=== PATIENT | female | born 1975 | race Caucasian/White ===

== ENCOUNTER 2016-10-15 15:42 | Inpatient (IN) | payer MEDICAID ==
[~2016-10-15] VITALS: Ht 165.1 cm; Wt 62.5 kg
[~2016-10-15 15:42] MED LIST: CIPR500T4 PO; FAMO-18 PO; HYD25 PO; HYDR-3672 PO; HYDR-762 PO; IBUP800T25 PO; LISI20TA11 PO; MAG355OR15 PO; METF-480 PO; METH-70 PO; OMEP20CA16 PO; ONDA4TAB8 PO
[2016-10-15] MEDS ORDERED: SOD CHLORIDE 0.9% 1,000 ML IV STA (17:49)
[2016-10-15] MEDS ORDERED: HYDROCHLOROTHIAZIDE 50 MG TAB PO ONE (18:00)
[2016-10-15 18:18] LABS: ADD SCAN DIFF NO
--- NOTE | 2016-10-15 18:21 | RADRPT ---
PROCEDURE: XR Chest. CLINICAL INDICATION: Abdomen pain. TECHNIQUE: Single frontal view. COMPARISON: 07/09/2016. FINDINGS: The lungs are clear. The heart size is normal. There is no pleural effusion. There is no pneumothorax. IMPRESSION: 1. Normal chest radiograph. 2. No change from 07/09/2016. RPTAT: QQ .Juanpablo Joshi MD, MD Date Time Electronically viewed and signed by .Juanpablo Joshi MD, MD on 10/15/2016 18:21 .R/
[2016-10-15 18:22] LABS: BASOPHILS % 0.2 % (0.0-2.0); EOSINOPHILS # 0.1 10^3/ul (0.0-0.5); EOSINOPHILS % 0.5 % (0.0-7.0); HEMATOCRIT 39.8 % (37.0-47.0); HEMOGLOBIN 13.2 g/dl (12.0-16.0); LYMPHOCYTES % 10.2 % (15.0-51.0); MEAN CORPUSCULAR HEMOGLOBIN 29.3 pg (29.0-33.0); MEAN CORPUSCULAR HGB CONC 33.2 g/dl (32.0-37.0); MEAN CORPUSCULAR VOLUME 88.4 fl (82.0-101.0); MEAN PLATELET VOLUME 11.1 fl (7.4-10.4); MONOCYTE # 0.9 10^3/ul (0.3-0.9); MONOCYTES % 8.4 % (0.0-11.0); NEUTROPHILS % 79.8 % (39.0-77.0); PLATELET COUNT 200 10^3/UL (140-415); RED CELL DISTRIBUTION WIDTH 14.6 % (11.5-14.5); WHITE BLOOD COUNT 10.1 10^3/ul (4.8-10.8)
[2016-10-15 18:29] LABS: ADD UMIC NO; URINE BILIRUBIN (Dip) NEGATIVE (NEGATIVE); URINE BLOOD (Dip) NEGATIVE (NEGATIVE); URINE COLOR LT. YELLOW (YELLOW); URINE GLUCOSE (Dip) >=1000 % (NEGATIVE); URINE KETONES (Dip) NEGATIVE (NEGATIVE); URINE LEUKOCYTE ESTERASE (Dip) NEGATIVE (NEGATIVE); URINE NITRITE (Dip) NEGATIVE (NEGATIVE); URINE TOTAL PROTEIN (Dip) NEGATIVE (NEGATIVE); URINE UROBILINOGEN (Dip) 0.2 E.U./dL (0.1-1.0)
[2016-10-15 18:33] LABS: ALBUMIN 3.7 g/dl (3.3-4.9)
[2016-10-15 18:34] LABS: CHLORIDE 104 mmol/L (97-110); POTASSIUM 3.7 mmol/L (3.5-5.1); SODIUM 138 mmol/L (135-144)
[2016-10-15 18:36] LABS: ALBUMIN/GLOBULIN RATIO 1.27; ALKALINE PHOSPHATASE 99 IU/L (42-121); ANION GAP 10 (8-16); ASPARTATE AMINO TRANSFERASE 11 IU/L (15-46); BILIRUBIN,INDIRECT 0.6 mg/dl (0-1.1); BILIRUBIN,TOTAL 0.6 mg/dl (0.2-1.3); CARBON DIOXIDE 28 mmol/L (21-31); CREATININE 0.46 mg/dl (0.44-1.00); TOTAL PROTEIN 6.6 g/dl (6.1-8.1)
[2016-10-15 18:37] LABS: ALANINE AMINOTRANSFERASE 24 IU/L (13-69); BLOOD UREA NITROGEN 30 mg/dl (7-20); CALCIUM 8.6 mg/dl (8.4-10.2); GLUCOSE 255 mg/dl (70-220)
--- NOTE | 2016-10-15 18:37 | RADRPT ---
PROCEDURE: CT Brain without. CLINICAL INDICATION: Right-sided paresthesia. TECHNIQUE: A CT of the brain was performed on multidetector high-resolution CT scanner utilizing a xial sections from the skull base through the vertex without contrast. The scan was reviewed in sof t tissue brain and high frequency resolution bone algorithm windows. Images were reviewed on a high -resolution PACS workstation. One or more the following does reduction techniques were utilized: Aut omated exposure control, adjustment of the mA/ or kV according to patient's size, or use of iterativ e reconstruction technique. The exam CTDI = 44.33 mGy and the DLP = 630.2 mGy-cm. COMPARISON: None available. FINDINGS: The ventricles and sulci are age-appropriate. There is no intracranial hemorrhage, mass effect or mi dline shift. No abnormal intra-axial or extra-axial fluid collections are seen. The vasquez/white brock er differentiation is preserved. No acute skull abnormality is noted. The visualized paranasal sinus es are essentially clear. IMPRESSION: 1. No acute intracranial hemorrhage, transcortical infarction or mass effect. If clinical concern p ersists consider brain MRI for further evaluation. RPTAT: QQ .Sandra Cruz MD, MD Date Time Electronically viewed and signed by .Sandra Cruz MD, MD on 10/15/2016 18:37 .N/
[2016-10-15 18:50] LABS: TROPONIN-I < 0.012 ng/ml (0.00-0.12)
[2016-10-15] MEDS ORDERED: ASPIRIN 325 MG TAB PO ONE (19:00)
[2016-10-15] MEDS ORDERED: HYDROCHLOROTHIAZIDE 25 MG TAB PO ONE (19:00)
--- NOTE | 2016-10-15 19:32 | ERA ---
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 MILD ZUNIGA. NO TRAUMA. HPI 41-year-old woman with complaints of right body paresthesias beginning this morning. She also states she has had difficulty ambulating and gait ataxia and deviation toward her right side while ambulating. Symptoms began over 7 hours prior to my evaluation. She states she has had 2 previous episodes of right- sided paresthesias in the past last one was 2 weeks ago. Patient has a history of poorly controlled hypertension and diabetes mellitus. She denies slurred speech, no headache, no vomiting, no diarrhea, no complaints of chest pain or shortness of breath. Patient denies previous strokes. ROS All systems reviewed and are negative except as per history of present illness. Medications Home Meds Active Scripts Ciprofloxacin Hcl* (Ciprofloxacin Hcl*) 500 Mg Tablet, 500 MG PO BID for 7 Days , TAB Prov:LEONORA SAVAGE 07/09/16 Hydralazine Hcl* (Hydralazine Hcl*) 50 Mg Tablet, 50 MG PO Q6, #120 TAB Prov:LEONORA SAVAGE 07/09/16 Ibuprofen* (Motrin*) 800 Mg Tab, 800 MG PO Q6H Y for PAIN AND OR ELEVATED TEMP, #30 TAB Prov:STACIA PETE DO 03/03/16 Methocarbamol* (Robaxin*) 750 Mg Tablet, 750 MG PO TID, #30 TAB Prov:CLEMENTE PETESTOLOS A. DO 03/03/16 Hydrocodone Bit-Acetaminophen* ([place]*) 10-325 Mg Tablet, 1 TAB PO Q6 Y for PAIN , #20 TAB Prov:STACIA PETE. DO 03/03/16 Omeprazole* (Omeprazole*) 20 Mg Capsule.dr, 20 MG PO DAILY, #30 CAP Prov:MYLA POON MD 06/25/15 Famotidine* (Pepcid*) 20 Mg Tablet, 20 MG PO BID, #30 TAB Prov:MYLA POON MD 06/25/15 Mag Hydrox/Al Hydrox/Simeth (Maalox Ms Liquid) 360 Ml Oral.susp, 2 TSP PO TID, # 24 OZ Prov:MYLA POON MD 06/25/15 Ondansetron Hcl* (Zofran*) 4 Mg Tablet, 4 MG PO Q6H for NAUSEA AND/OR VOMITING, #30 TAB Prov:MYLA POON MD 06/25/15 Lisinopril* (Lisinopril*) 20 Mg Tablet, 20 MG PO DAILY, #30 TAB Prov:DOYLE NAVARRO MD 06/20/15 Hydrochlorothiazide* (Hydrochlorothiazide*) 25 Mg Tab, 25 MG PO DAILY, #30 TAB Prov:DOYLE NAVARRO MD 06/20/15 Reported Medications Metformin* (Glucophage*) 850 Mg Tablet, 850 MG PO BID, TAB 06/25/15 Allergies Allergies: Coded Allergies: No Known Allergy (Unverified , 03/03/16) PMhx/Soc Hypertension, diabetes mellitus, gastritis History of Surgery: Yes (RIGHT SIDE HERNIA REPAIR) Anesthesia Reaction: No Hx Neurological Disorder: No Hx Respiratory Disorders: No Hx Cardiac Disorders: Yes (hypertension) Hx Psychiatric Problems: No Hx Miscellaneous Medical Probl: Yes (DM, HIGH CHOLESTEROL ) Hx Alcohol Use: No Hx Substance Use: No Hx Tobacco Use: No Smoking Status: Never smoker FmHx Family History: No diabetes Physical Exam Vitals Vital Signs Date Time Temp Pulse Resp B/P Pulse Ox O2 Delivery O2 Flow Rate FiO2 10/15/16 19:21 59 14 147/94 100 Room Air 10/15/16 17:42 62 16 160/84 100 Room Air 10/15/16 16:13 98.9 76 20 185/98 99 Physical Exam GENERAL: Well-developed, well-nourished, well-hydrated, in no apparent distress , looks nontoxic in appearance HEENT: Moist mucous membranes, pink conjunctiva, no cervical spine tenderness or step-off deformities, no goiter, no jaundice or icterus, extraocular movements intact without pain. No submandibular induration, and no pharyngeal erythema NEURO: Alert and oriented 3, positive pronator drift to the right upper extremity and 4/5 strength in the right upper extremity compared to 5/5 strength in the left upper extremity, cranial nerves II through XII intact bilaterally, pupils equal round reactive to light, no focal deficits or facial asymmetry, sensation intact distally Strength 5/5 in upper and lower extremities bilaterally CARDIAC: Regular rate and rhythm, no murmurs rubs or gallops LUNGS: Clear bilaterally no wheezing crackles or stridor ABDOMEN: Soft nontender, no guarding, no rigidity, no rebound, no psoas sign no obturator sign. Normoactive bowel sounds SKIN: Warm and dry to touch, no abrasions, contusions, or hematomas, no lacerations, no ecchymosis, no target lesions, and without ulcers EXTREMITIES: No clubbing cyanosis or edema, calves are bilaterally symmetrical, no Homans sign, no popliteal cord sign. Distal pulses equal and bilateral PSYCH: Normal affect without agitation or irritability Result Diagram: 10/15/16180510/15/161805 Results 24 hrs Laboratory Tests Test 10/15/16 18:00 10/15/16 18:06 Urine Color LT. YELLOW Urine Clarity CLEAR Urine pH 5.0 Urine Specific [place] >=1.030 Urine Ketones NEGATIVE Urine Nitrite NEGATIVE Urine Bilirubin NEGATIVE Urine Urobilinogen 0.2 E.U./dL Urine Leukocyte Esterase NEGATIVE Urine Hemoglobin NEGATIVE Urine Glucose >=1000% Urine Total Protein NEGATIVE White Blood Count 10.110^3/ul Red Blood Count 4.5010^6/ul Hemoglobin 13.2g/dl Hematocrit 39.8% Mean Corpuscular Volume 88.4fl Mean Corpuscular Hemoglobin 29.3pg Mean Corpuscular Hemoglobin Concent 33.2g/dl Red Cell Distribution Width 14.6% Platelet Count 84688^3/UL Mean Platelet Volume 11.1fl Neutrophils % 79.8% Lymphocytes % 10.2% Monocytes % 8.4% Eosinophils % 0.5% Basophils % 0.2% Nucleated Red Blood Cells % 0.0/100WBC Neutrophils # 8.010^3/ul Lymphocytes # 1.010^3/ul Monocytes # 0.910^3/ul Eosinophils # 0.110^3/ul Basophils # 0.010^3/ul Nucleated Red Blood Cells # 0.010^3/ul Sodium Level 138mmol/L Potassium Level 3.7mmol/L Chloride Level 104mmol/L Carbon Dioxide Level 28mmol/L Anion Gap 10 Blood Urea Nitrogen 30mg/dl Creatinine 0.46mg/dl Glucose Level 255mg/dl Calcium Level 8.6mg/dl Total Bilirubin 0.6mg/dl Direct Bilirubin 0.00mg/dl Indirect Bilirubin 0.6mg/dl Aspartate Amino Transf (AST/SGOT) 11IU/L Alanine Aminotransferase (ALT/SGPT) 24IU/L Alkaline Phosphatase 99IU/L Troponin I < 0.012ng/ml Total Protein 6.6g/dl Albumin 3.7g/dl Globulin 2.90g/dl Albumin/Globulin Ratio 1.27 Lipase 81U/L Current Medications Medications (Trade) Dose Ordered Sig/[place] Route PRN Reason Start Time Stop Time Status Last Admin Dose Admin Sodium Chloride (NS) 1,000 ml @ 1,000 mls/hr Q1H STAT IV 10/15/16 17:49 10/15/16 18:48 DC 10/15/16 18:33 Hydrochlorothiazide (Hydrochlorothiazide) 50 mg ONCE ONCE PO 10/15/16 18:00 10/15/16 18:01 DC Hydrochlorothiazide (Hydrochlorothiazide) 50 mg ONCE ONCE PO 10/15/16 19:00 10/15/16 19:01 DC Aspirin (Aspirin) 325 mg ONCE ONCE PO 10/15/16 19:00 10/15/16 19:01 DC 10/15/16 19:18 Procedures/MDM IV line was established patient was placed on color television console monitor rhythm strip revealed a sinus rhythm at about 60 bpm with upright P and T waves. Patient was afebrile. Patient passed her swallow study. I administered 1 L normal saline intravenously. One AP view of the chest performed, read by me reveals no acute infiltrates, normal mediastinum, sharp costophrenic and cardiac borders, no air under the diaphragm. Otherwise unremarkable chest x-ray. CT scan of the brain was performed that was negative for acute bleed mass or shift. Given the patient's physical exam findings and symptoms I did administer aspirin 325 mg p.o. for neuroprotective measures. CBC was unremarkable, electrolytes revealed dehydration with a BUN/creatinine of 30/0.5, liver function tests were normal, troponin was negative. EKG performed, read by me revealed a sinus bradycardia 57 bpm, normal axis, narrow QRS complex, no concerning ST elevations or depressions noted. For hypertension I administered nicardipine 30 mg p.o. 1 with good effect. Neuro critical Care: Time: 34 minutes, this was time separate from other procedures. Treatments/Evaluations: Close monitoring and treatment of unstable vital signs, cardiorespiratory, and neurologic status, while maintaining tight balance of fluid, respiratory, and cardiac interventions. Patient will be admitted to telemetry setting for continued medical management and brain MRI. Departure Diagnosis: Primary Impression: Stroke Qualified Code: I63.9 - Cerebrovascular accident (CVA), unspecified mechanism Additional Impressions: Hyperglycemia Paresthesias Dehydration Bradycardia Hypertension Qualified Code: I10 - Essential hypertension Condition: MYLA Nesbitt MD Oct 15, 2016 19:32
[2016-10-15] MEDS ORDERED: METF1000 PO (19:41)
[2016-10-15] MEDS ORDERED: SIMV40TA2 PO (19:42)
[2016-10-15] MEDS ORDERED: ASPI-664 PO (19:42)
[2016-10-15] MEDS ORDERED: LISI40TA9 PO (19:43)
[2016-10-15] MEDS ORDERED: ATEN50TA PO (19:43)
[2016-10-15] MEDS ORDERED: NICARDipine HCL 30 MG CAPSULE PO ONE (20:00)
[2016-10-16] VITALS (11 sets, daily range): BP systolic 123–168; BP diastolic 70–101; PULSE 57–68; RESP 16–19; Ht 165.1 cm; Wt 62.5 kg
[2016-10-16] MEDS ORDERED: GLUCOSE GEL 15 GRAM TUBE PO PRN ×2 (03:30)
[2016-10-16] MEDS ORDERED: GLUCAGON 1 MG INJ IM PRN (03:30)
[2016-10-16] MEDS ORDERED: DEXTROSE 50% 50 ML SYRINGE IV PRN ×2 (03:30)
[2016-10-16] MEDS ORDERED: GLUCOSE GEL 15 GRAM TUBE BUCCAL PRN (03:30)
[2016-10-16 07:40] LABS: ADD SCAN DIFF NO
[2016-10-16 07:47] LABS: BASOPHILS % 0.1 % (0.0-2.0); EOSINOPHILS % 0.4 % (0.0-7.0); HEMATOCRIT 37.2 % (37.0-47.0); HEMOGLOBIN 12.6 g/dl (12.0-16.0); LYMPHOCYTES % 13.8 % (15.0-51.0); MEAN CORPUSCULAR HEMOGLOBIN 29.7 pg (29.0-33.0); MEAN CORPUSCULAR HGB CONC 33.9 g/dl (32.0-37.0); MEAN CORPUSCULAR VOLUME 87.7 fl (82.0-101.0); MEAN PLATELET VOLUME 11.9 fl (7.4-10.4); MONOCYTE # 0.7 10^3/ul (0.3-0.9); MONOCYTES % 8.7 % (0.0-11.0); NEUTROPHIL # 5.7 10^3/ul (1.6-7.5); NEUTROPHILS % 75.9 % (39.0-77.0); PLATELET COUNT 189 10^3/UL (140-415); RED BLOOD COUNT 4.24 10^6/ul (4.20-5.40); RED CELL DISTRIBUTION WIDTH 14.6 % (11.5-14.5); WHITE BLOOD COUNT 7.6 10^3/ul (4.8-10.8)
[2016-10-16] MEDS: INSULIN ASPART [NOVOLOG] 3 ML PEN SC SCH ×5 (07:55→20:46)
[2016-10-16 08:23] LABS: ALBUMIN 3.2 g/dl (3.3-4.9)
[2016-10-16 08:24] LABS: POTASSIUM 3.5 mmol/L (3.5-5.1)
[2016-10-16 08:26] LABS: ALBUMIN/GLOBULIN RATIO 1.18; BILIRUBIN,INDIRECT 0.4 mg/dl (0-1.1); BILIRUBIN,TOTAL 0.4 mg/dl (0.2-1.3); CREATININE 0.39 mg/dl (0.44-1.00); TOTAL PROTEIN 5.9 g/dl (6.1-8.1)
[2016-10-16 08:27] LABS: CALCIUM 8.4 mg/dl (8.4-10.2); PHOSPHORUS 3.5 mg/dl (2.5-4.9)
[2016-10-16 08:28] LABS: CHOL/HDL RATIO 4.6 RATIO; MAGNESIUM 1.8 mg/dl (1.7-2.5)
[2016-10-16 08:39] LABS: THYROID STIMULATING HORMONE 0.885 MIU/L (0.465-4.680)
[2016-10-16] MEDS ORDERED: INSULIN GLARGINE [LANtus] 3 ML PEN SC SCH (09:00)
[2016-10-16] MEDS: LISINOPRIL 20 MG TAB PO SCH (09:22)
[2016-10-16] MEDS: ASPIRIN (EC) 81 MG TAB PO SCH (09:22)
[2016-10-16] MEDS: ATENOLOL 50 MG TAB PO SCH (09:22)
[2016-10-16] MEDS: HEPARIN 5,000 UNIT/0.5 ML SYG SC SCH ×2 (09:29→20:46)
--- NOTE | 2016-10-16 10:22 | HP ---
DATE OF ADMISSION: 10/15/2016 CHIEF COMPLAINT: Right-sided weakness and numbness. HISTORY OF PRESENT ILLNESS: The patient is a 41-year-old female with a history of hypertension, di abetes, dyslipidemia who presented to the emergency department with right-sided weakness. The sympt oms started about 1 day ago. She states that she had noticed numbness and weakness of both right u pper and lower extremities including facial numbness. She denied any chest pain, shortness of breat h, fever or chills, difficulty with her speech. When asked about any visual disturbance, she states yes "because of my diabetes." She denied any seizure-like activity, headaches. When she presented to the ER, vitals showed blood pressure 185/98. Her laboratory value shows a BUN of 30, glucose of 255. Otherwise, the rest of the her labs are within acceptable range. Head CT w ith no acute abnormalities. Note that information is also obtained from a family member was at the bedside who also helped with translation. REVIEW OF SYSTEMS: A 12-point review of systems was performed, negative except as mentioned in HPI. PAST MEDICAL HISTORY: As per HPI. PAST SURGICAL HISTORY: Denies. SOCIAL HISTORY: Denies a history of tobacco, alcohol or illicit drug use. FAMILY HISTORY: Mother with diabetes. Denied a history of stroke or heart disease in the family. ALLERGIES: NO KNOWN DRUG ALLERGIES. HOME MEDICATIONS: 1. Aspirin. 2. Metformin. 3. Zocor. PHYSICAL EXAMINATION: VITAL SIGNS: Stable. GENERAL: In no acute distress. 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 HEENT: No obvious head deformity. Pupils are reactive to light. Extraocular muscles intact. CARDIOVASCULAR: Regular rate and rhythm. No extra sounds. LUNGS: Clear. ABDOMEN: Soft, nontender, nondistended. Positive bowel sounds. EXTREMITIES: No edema. There was a positive right upper extremity pronator drift. NEUROLOGIC: There is a decreased sensation on the right side of her body including her face. LABORATORY DATA: BUN 30, glucose 255. Otherwise, the rest of her labs are within acceptable range. IMPRESSION: 1. Focal weakness and numbness, rule out stroke. 2. Right upper quadrant pain. 3. History of diabetes. 4. Hypertension, blood pressure now better controlled. 5. History of dyslipidemia. PLAN: Admit to telemetry unit. She will be on aspirin, statin, and for DVT prophylaxis she will be placed on subcutaneous heparin. We will check A1c and fasting lipid panel. I will order and MRI o f the brain and MRA of the head and neck. We will also obtain a 2D echocardiogram. We will place a neurology consult. Given her right upper quadrant pain, we will obtain an abdominal ultrasound. Dictated By: LEONORA STARK/JEREMY Conf#: [id number] DID#: [id number]
--- NOTE | 2016-10-16 12:05 | CONS ---
Date/Time of Note Date/Time of Note DATE: 10/16/16 TIME: 12:00 Assessment/Plan Assessment/Plan Chief Complaint/Hosp Course 41 year old female with history of HTN, HLD, DM p/w right sided numbness/ weakness, exam consistent with mild right pronator drift and ataxia with decreased sensation. Further work up planned to r/o CVA. Recommendations: -ASA 81 mg daily -Lipitor 40 mg qhs -MRI Brain without contrast, MRA Head and Neck without contrast -2D ECHO with bubble study -HBA1C pending, target less than 6.5% -maintain normotension BP<140/90 -DVT ppx -will follow for further recommendations Problems: Consultation Date/Type/Reason Admit Date/Time Oct 15, 2016 at 19:21 Date of Consultation: Oct 16, 2016 Type of Consultation: Neurology Reason for Consultation evaluate for CVA Referring Provider: DARYL BAEZ Hx of Present Illness 41 year old female with history of HTN, HLD, DM presenting with 3 episodes of right sided numbness and weakness. She reports symptoms began day prior to admission, had 3 separate events lasting up to 2 hours where she felt a shock sensation on right side of her head associated with blurred vision and numbness and weakness to her right face arm and leg. She has history of migraines, denies any active headaches or headache following the event, no speech deficits or trouble with balance or ambulation. She denies hx of previous events. 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 YELLOW Urine Clarity CLEAR Urine pH 5.0 Urine Specific [place] >=1.030 H Urine Ketones NEGATIVE Urine Nitrite NEGATIVE Urine Bilirubin NEGATIVE Urine Urobilinogen 0.2 E.U./dL Urine Leukocyte Esterase NEGATIVE Urine Hemoglobin NEGATIVE Urine Glucose >=1000 Urine Total Protein NEGATIVE White Blood Count 10.1 7.6 # Red Blood Count 4.50 4.24 Hemoglobin 13.2 12.6 Hematocrit 39.8 37.2 Mean Corpuscular Volume 88.4 87.7 Mean Corpuscular Hemoglobin 29.3 29.7 Mean Corpuscular Hemoglobin Concent 33.2 33.9 Red Cell Distribution Width 14.6 H 14.6 H Platelet Count 200 189 Mean Platelet Volume 11.1 H 11.9 H Neutrophils % 79.8 H 75.9 Lymphocytes % 10.2 L 13.8 L Monocytes % 8.4 8.7 Eosinophils % 0.5 0.4 Basophils % 0.2 0.1 Nucleated Red Blood Cells % 0.0 0.0 Neutrophils # 8.0 H 5.7 Lymphocytes # 1.0 1.0 Monocytes # 0.9 0.7 Eosinophils # 0.1 0.0 Basophils # 0.0 0.0 Nucleated Red Blood Cells # 0.0 0.0 Sodium Level 138 136 Potassium Level 3.7 3.5 Chloride Level 104 103 Carbon Dioxide Level 28 27 Anion Gap 10 10 Blood Urea Nitrogen 30 H 21 H Creatinine 0.46 0.39 L Glucose Level 255 H 253 H Calcium Level 8.6 8.4 Total Bilirubin 0.6 0.4 Direct Bilirubin 0.00 0.00 Indirect Bilirubin 0.6 0.4 Aspartate Amino Transf (AST/SGOT) 11 L 12 L Alanine Aminotransferase (ALT/SGPT) 24 31 Alkaline Phosphatase 99 93 Troponin I < 0.012 Total Protein 6.6 5.9 L Albumin 3.7 3.2 L Globulin 2.90 2.70 Albumin/Globulin Ratio 1.27 1.18 Lipase 81 Phosphorus Level 3.5 Magnesium Level 1.8 Triglycerides Level 198 H Cholesterol Level 195 LDL Cholesterol, Calculated 113 HDL Cholesterol 42 Cholesterol/HDL Ratio 4.6 Thyroid Stimulating Hormone (TSH) 0.885 Bedside Glucose 190 Medications Medications Current Medications Aspirin (Halfprin) 81 mg DAILY PO Last administered on 10/16/16 09:22; Admin Dose 81 MG; Start 10/16/16 at 09:00 Atenolol (Tenormin) 50 mg DAILY PO Last administered on 10/16/16 09:22; Admin Dose 50 MG; Start 10/16/16 at 09:00 Lisinopril (Zestril) 40 mg DAILY PO Last administered on 10/16/16 09:22; Admin Dose 40 MG; Start 10/16/16 at 09:00 Atorvastatin Calcium (Lipitor) 40 mg HS PO ; Start 10/16/16 at 21:00 Heparin Sodium (Porcine) (Heparin (5000 Units/0.5 ml)) 5,000 unit BID SC Last administered on 10/16/16 09:29; Admin Dose 5,000 UNIT; Start 10/16/16 at 09:00 Insulin Glargine (Lantus) 10 unit DAILY@09 SC Last administered on 10/16/16 09 :29; Admin Dose 10 UNIT; Start 10/16/16 at 09:00 Diagnostic Test (Pha) (Accu-Chek) 1 ea 02 XX ; Start 10/17/16 at 02:00 Miscellaneous Information 1 ea NOTE XX ; Start 10/16/16 at 03:30 Glucose (Glutose) 15 gm Q15M PRN PO DECREASED GLUCOSE; Start 10/16/16 at 03:30 Glucose (Glutose) 22.5 gm Q15M PRN PO DECREASED GLUCOSE; Start 10/16/16 at 03: 30 Dextrose (D50w Syringe) 25 ml Q15M PRN IV DECREASED GLUCOSE; Start 10/16/16 at 03:30 Dextrose (D50w Syringe) 50 ml Q15M PRN IV DECREASED GLUCOSE; Start 10/16/16 at 03:30 Glucagon (Glucagen) 1 mg Q15M PRN IM DECREASED GLUCOSE; Start 10/16/16 at 03:30 Glucose (Glutose) 15 gm Q15M PRN BUCCAL DECREASED GLUCOSE; Start 10/16/16 at 03 :30 ROBBIE MARTINEZ MD Oct 16, 2016 12:05
--- NOTE | 2016-10-16 14:52 | PN ---
Date/Time of Note Date/Time of Note DATE: 10/16/16 TIME: 14:49 Assessment/Plan VTE Prophylaxis VTE Prophylaxis Intervention: heparin Lines/Catheters IV [facility] Saline Lock Assessment/Plan Chief Complaint/Hosp Course Assessment and plan 1. Focal weakness and numbness right upper extremity. Patient seen with some right upper extremity weakness and pronator drift. Neurologist following. Await MRI of brain 2. Right upper quadrant abdominal pain. No abdominal pain reported at this time. Awaiting ultrasound of the abdomen 3. Diabetes. Uncontrolled. Will adjust insulin regimen. 4. Essential hypertension. Continue on antihypertensives and adjust as needed 5. History of dyslipidemia. Continue on statin Disposition and plan: Awaiting MRI brain with contrast and MRA head and neck without contrast. Follow-up with neurologist of patient's Discussed plan of care with Dr. Anderson Problems: Subjective 24 Hr Interval Summary Free Text/Dictation No pending distress seen. Reports having some right upper extremity weakness. Exam/Review of Systems Vital Signs Vitals Vital Signs Date Time Temp Pulse Resp B/P Pulse Ox O2 Delivery O2 Flow Rate FiO2 10/16/16 12:18 64 10/16/16 11:18 97.8 18 168/101 97 10/16/16 02:02 Room Air Intake and Output 10/15/16 10/15/16 10/16/16 15:00 23:00 07:00 Intake Total 1000 ml Balance 1000 ml Exam General: No acute signs or symptoms of distress Eyes: pupils equal round, Anicteric sclera Neck: Supple nontender, no JVD Cardiac: S1, S2 auscultated, regular rhythm and rate Pulmonary: No coarse rhonchi or breathing auscultated GI: Abdomen soft nontender nondistended, bowel sounds active Extremities: Noted with right upper extremity weakness Skin: Clean dry and intact Neurologic: Alert to person place and time and situation, seen with pronator drift on right upper extremity. Results Result Diagram: 10/16/16 0626 10/16/16 0626 Results 24 hrs Laboratory Tests Test 10/15/16 18:00 10/15/16 18:06 10/16/16 06:26 10/16/16 08:05 Urine Color LT. YELLOW Urine Clarity CLEAR Urine pH 5.0 Urine Specific [place] >=1.030 H Urine Ketones NEGATIVE Urine Nitrite NEGATIVE Urine Bilirubin NEGATIVE Urine Urobilinogen 0.2 E.U./dL Urine Leukocyte Esterase NEGATIVE Urine Hemoglobin NEGATIVE Urine Glucose >=1000 Urine Total Protein NEGATIVE White Blood Count 10.1 7.6 # Red Blood Count 4.50 4.24 Hemoglobin 13.2 12.6 Hematocrit 39.8 37.2 Mean Corpuscular Volume 88.4 87.7 Mean Corpuscular Hemoglobin 29.3 29.7 Mean Corpuscular Hemoglobin Concent 33.2 33.9 Red Cell Distribution Width 14.6 H 14.6 H Platelet Count 200 189 Mean Platelet Volume 11.1 H 11.9 H Neutrophils % 79.8 H 75.9 Lymphocytes % 10.2 L 13.8 L Monocytes % 8.4 8.7 Eosinophils % 0.5 0.4 Basophils % 0.2 0.1 Nucleated Red Blood Cells % 0.0 0.0 Neutrophils # 8.0 H 5.7 Lymphocytes # 1.0 1.0 Monocytes # 0.9 0.7 Eosinophils # 0.1 0.0 Basophils # 0.0 0.0 Nucleated Red Blood Cells # 0.0 0.0 Sodium Level 138 136 Potassium Level 3.7 3.5 Chloride Level 104 103 Carbon Dioxide Level 28 27 Anion Gap 10 10 Blood Urea Nitrogen 30 H 21 H Creatinine 0.46 0.39 L Glucose Level 255 H 253 H Calcium Level 8.6 8.4 Total Bilirubin 0.6 0.4 Direct Bilirubin 0.00 0.00 Indirect Bilirubin 0.6 0.4 Aspartate Amino Transf (AST/SGOT) 11 L 12 L Alanine Aminotransferase (ALT/SGPT) 24 31 Alkaline Phosphatase 99 93 Troponin I < 0.012 Total Protein 6.6 5.9 L Albumin 3.7 3.2 L Globulin 2.90 2.70 Albumin/Globulin Ratio 1.27 1.18 Lipase 81 Hemoglobin A1c 10.7 H Phosphorus Level 3.5 Magnesium Level 1.8 Triglycerides Level 198 H Cholesterol Level 195 LDL Cholesterol, Calculated 113 HDL Cholesterol 42 Cholesterol/HDL Ratio 4.6 Thyroid Stimulating Hormone (TSH) 0.885 Bedside Glucose 190 Test 10/16/16 12:18 Bedside Glucose 220 Medications Medications Current Medications Aspirin (Halfprin) 81 mg DAILY PO Last administered on 10/16/16 09:22; Admin Dose 81 MG; Start 10/16/16 at 09:00 Atenolol (Tenormin) 50 mg DAILY PO Last administered on 10/16/16 09:22; Admin Dose 50 MG; Start 10/16/16 at 09:00 Lisinopril (Zestril) 40 mg DAILY PO Last administered on 10/16/16 09:22; Admin Dose 40 MG; Start 10/16/16 at 09:00 Atorvastatin Calcium (Lipitor) 40 mg HS PO ; Start 10/16/16 at 21:00 Heparin Sodium (Porcine) (Heparin (5000 Units/0.5 ml)) 5,000 unit BID SC Last administered on 10/16/16 09:29; Admin Dose 5,000 UNIT; Start 10/16/16 at 09:00 Diagnostic Test (Pha) (Accu-Chek) 1 ea 02 XX ; Start 10/17/16 at 02:00 Miscellaneous Information 1 ea NOTE XX ; Start 10/16/16 at 03:30 Glucose (Glutose) 15 gm Q15M PRN PO DECREASED GLUCOSE; Start 10/16/16 at 03:30 Glucose (Glutose) 22.5 gm Q15M PRN PO DECREASED GLUCOSE; Start 10/16/16 at 03: 30 Dextrose (D50w Syringe) 25 ml Q15M PRN IV DECREASED GLUCOSE; Start 10/16/16 at 03:30 Dextrose (D50w Syringe) 50 ml Q15M PRN IV DECREASED GLUCOSE; Start 10/16/16 at 03:30 Glucagon (Glucagen) 1 mg Q15M PRN IM DECREASED GLUCOSE; Start 10/16/16 at 03:30 Glucose (Glutose) 15 gm Q15M PRN BUCCAL DECREASED GLUCOSE; Start 10/16/16 at 03 :30 Insulin Glargine (Lantus) 15 unit DAILY@09 SC ; Start 10/17/16 at 09:00 DARYL BAEZ Oct 16, 2016 14:52
--- NOTE | 2016-10-16 16:14 | RADRPT ---
PROCEDURE: MRI Brain without contrast. CLINICAL INDICATION: Left-sided weakness, numbness TECHNIQUE: Multiplanar MRI of the brain without contrast was performed on a 3.0 T scanner with the following sequences obtained: T1-weighted, T2-weighted/FLAIR, diffusion weighted (with ADC map), GR E. COMPARISON: CT brain 10/15/2016 FINDINGS: No acute/recent ischemic infarction or intracranial hemorrhage / blood degradation products are iden tified. No extra-axial fluid collection is seen. There is no mass effect. No midline shift is identified. The ventricles and sulci are within normal limits for size and configuration. There are a few scattered punctate foci of increased T2-weighted FLAIR signal intensity in the deep white matter which are nonspecific. Flow voids are identified in the proximal intracranial arteries and dural sinuses suggesting patency . There is a moderate - large right maxillary sinus mucous retention cyst. IMPRESSION: 1. No evidence of acute intracranial pathology. 2. Minimal nonspecific white matter changes, possibly reflecting chronic small vessel ischemic roa ges. RPTAT: VV .Onofre Gomes MD, MD Date Time Electronically viewed and signed by .Onofre Gomes MD, on 10/16/2016 16:13 .O/
--- NOTE | 2016-10-16 16:40 | RADRPT ---
PROCEDURE: MRA Neck without contrast. CLINICAL INDICATION: Left-sided weakness, numbness TECHNIQUE: An MRA of the major cervical arteries was performed on a 3.0 T scanner utilizing axial 2-D nwpr-ol-yfhlig sequence, and 3-D nksw-aq-qhdyvu sequence through the carotid bifurcations. Romelia rce and MIP images were reviewed. COMPARISON: None available FINDINGS: The origin of the great vessels arising off of the aortic arch appear patent with common origin of t he brachiocephalic - left common carotid arteries noted. The bilateral common carotid arteries are patent. The bilateral carotid bulbs and internal carotid arteries are patent without stenosis by NA SCET criteria identified. The visualized bilateral vertebral arteries are patent. No dissection is identified. IMPRESSION: Unremarkable MRA of the neck. RPTAT: VV .Onofre Gomes MD, Date Time Electronically viewed and signed by .Onofre Gomes MD, on 10/16/2016 16:40 .O/
--- NOTE | 2016-10-16 16:46 | RADRPT ---
PROCEDURE: MRA brain without contrast CLINICAL INDICATION: Left-sided weakness, numbness TECHNIQUE: 3-D amlb-gy-uaimtc intracranial MRA was performed on a 3.0T scanner. Rotational MIP aydin ges were reformatted. The source images were also reviewed. COMPARISON: None available FINDINGS: The bilateral internal carotid arteries, and the bilateral middle and anterior cerebral arteries are patent. The bilateral vertebral arteries, basilar artery, as well as the bilateral posterior cereb ral arteries are patent. No aneurysm or vascular malformation is identified. IMPRESSION: Unremarkable MRA of the brain. RPTAT: VV .Onofre Gomes MD, Date Time Electronically viewed and signed by .Onofre Gomes MD, on 10/16/2016 16:45 .O/
--- NOTE | 2016-10-16 17:37 | RADRPT ---
Echocardiogram Report Patient Name: GARRET ANSARI Gender: Female Date: 1975 Study Date: 16-Oct-2016 Python Django Developer: Jeffrey Mares [facility] Location: [id number] Ref. Physician: LEONORA BARROS Quality: Good Procedures: Transthoracic echocardiogram with complete 2D, M-Mode, and doppler examination. Indications: Evaluate Left Ventricular function. 2D/M Mode Doppler Measurement Value Normal Ranges Measurement Value Normal Ranges LVIDd 2D 4.3 3.5 - 5.6 cm AV Peak Josh 1.3 m/sec LVIDs 2D 2.8 2.1 - 4.1 cm AV Peak PG 6.5 mmHg LVPWd 2D 0.7 0.6 - 1.1 cm LVOT Peak Josh 0.9 m/sec IVSd 2D 0.8 0.6 - 1.1 cm LVOT Peak PG 2.9 mmHg AoR Diam 2D 2.3 2.0 - 3.7 cm MV E Peak Josh 0.6 m/sec EDV 2D 82.2 cm3 MV A Peak Josh 0.4 m/sec ESV 2D 22.7 cm3 MV E/A 1.5 LA Dimen 2D 3.2 2.3 - 4.0 cm MV Decel Time 205 msec MV Decel Metcalfe 3 MV E/A 1.5 TR Peak Josh 1.8 m/sec TR Peak PG 12.4 mmHg RVSP 15.0 mmHg Findings Left Ventricle: Normal left ventricular systolic function. Normal left ventricular cavity size. Normal left ventricular wall thickness. Ejection fraction is visually estimated at 5560 %. Tissue Doppler/Mitral Doppler indices are within normal limits. Right Ventricle: Normal right ventricular size. Normal right ventricular systolic function. Left Atrium: The left atrium is normal in size. Right Atrium: The right atrium is normal in size. Mitral Valve: Normal appearance and function of the mitral valve with trace physiologic regurgitation. Aortic Valve: Normal appearance of the aortic valve. No significant aortic stenosis or insufficiency. Tricuspid Valve: Normal appearance and function of the tricuspid valve with trace physiologic regurgitation. Estimated peak PA systolic pressure 15 mmHg. Pulmonic Valve: Normal pulmonic valve appearance. Pericardium: Normal pericardium with no significant pericardial effusion. Aorta: Normal aortic root. IVC: Normal size and normal respiratory collapse consistent with normal right atrial pressure. Conclusions 1.The left ventricle is normal in size and systolic function. 2.Estimated left ventricular ejection fraction of 55-60%. Electronically Signed By: James Tello 16-Oct-2016 17:36:08 -0700 Patient Name: GARRET ANSARI Study Date: 16-Oct-2016 [id number]
--- NOTE | 2016-10-16 17:58 | RADRPT ---
PROCEDURE: US Abdomen (right upper quadrant). CLINICAL INDICATION: Right upper quadrant abdomen pain. TECHNIQUE: Multiple real-time longitudinal and transverse images of the right upper quadrant of th e abdomen were acquired utilizing a curved array transducer. Images were reviewed on a high-resoluti on PACS workstation. COMPARISON: None FINDINGS: The liver is normal in size and diffusely increased in echogenicity consistent with fatty metamorpho sis. There is no focal hepatic lesion. Color Doppler and pulsed Doppler sonography demonstrate normal an tegrade flow in the portal vein. The gallbladder is normal with no stones or wall thickening. There is no pericholecystic fluid cy ection. The bile ducts are normal with the common bile duct measuring 2.4 mm in diameter. The visualized portions of the pancreas are unremarkable with obscuration of the tail of the pancrea s. No free fluid is present. The right kidney measures 11.3 cm. There is normal echogenicity of the right kidney. There is no perinephric fluid collection. No hydronephrosis, mass, or calculus is seen. IMPRESSION: 1. Fatty metamorphosis of the liver. 2. Otherwise normal right upper quadrant abdomen ultrasound. RPTAT: QQ .Juanpablo Joshi MD, MD Date Time Electronically viewed and signed by .Juanpablo Joshi MD, on 10/16/2016 17:58 .R/
[2016-10-16] MEDS ORDERED: ATORVASTATIN 40 MG TAB PO SCH (21:00)
[2016-10-17] VITALS (10 sets, daily range): BP systolic 121–149; BP diastolic 65–84; PULSE 48–84; RESP 16–20
[2016-10-17] MEDS ORDERED: ACCU-CHEK XX SCH (02:00)
[2016-10-17 06:47] LABS: ADD SCAN DIFF NO
[2016-10-17 06:57] LABS: BASOPHILS % 0.3 % (0.0-2.0); EOSINOPHILS % 0.3 % (0.0-7.0); LYMPHOCYTES # 0.8 10^3/ul (0.8-2.9); LYMPHOCYTES % 11.5 % (15.0-51.0); MEAN CORPUSCULAR HEMOGLOBIN 29.6 pg (29.0-33.0); MEAN CORPUSCULAR HGB CONC 34.2 g/dl (32.0-37.0); MEAN CORPUSCULAR VOLUME 86.6 fl (82.0-101.0); MEAN PLATELET VOLUME 11.3 fl (7.4-10.4); MONOCYTE # 0.6 10^3/ul (0.3-0.9); MONOCYTES % 8.8 % (0.0-11.0); NEUTROPHIL # 5.4 10^3/ul (1.6-7.5); NEUTROPHILS % 78.2 % (39.0-77.0); PLATELET COUNT 186 10^3/UL (140-415); RED BLOOD COUNT 4.39 10^6/ul (4.20-5.40); RED CELL DISTRIBUTION WIDTH 14.3 % (11.5-14.5)
[2016-10-17 07:18] LABS: POTASSIUM 3.8 mmol/L (3.5-5.1)
[2016-10-17 07:20] LABS: CREATININE 0.39 mg/dl (0.44-1.00)
[2016-10-17 07:21] LABS: CALCIUM 8.7 mg/dl (8.4-10.2)
[2016-10-17] MEDS: ATENOLOL 50 MG TAB PO SCH (08:40)
[2016-10-17] MEDS: LISINOPRIL 20 MG TAB PO SCH (08:41)
[2016-10-17] MEDS: ASPIRIN (EC) 81 MG TAB PO SCH (08:41)
[2016-10-17] MEDS: HEPARIN 5,000 UNIT/0.5 ML SYG SC SCH (08:51)
[2016-10-17] MEDS: INSULIN ASPART [NOVOLOG] 3 ML PEN SC SCH ×6 (08:52→17:41)
[2016-10-17] MEDS ORDERED: INSULIN GLARGINE [LANtus] 3 ML PEN SC SCH (09:00)
[2016-10-17] MEDS ORDERED: ATEN50TA PO (09:56)
[2016-10-17] MEDS ORDERED: NOVO3I SC (09:56)
[2016-10-17] MEDS ORDERED: LANT3I SC (09:56)
[2016-10-17] MEDS ORDERED: LISI40TA9 PO (09:56)
[2016-10-17] MEDS ORDERED: ASPI-664 PO (09:56)
--- NOTE | 2016-10-17 10:01 | PDOCDIS ---
Discharge Instructions DIAGNOSIS Discharge Diagnosis: 1. Focal weakness and numbness right upper extremity 2. Diabetes CONDITION Patient Condition: Stable HOME CARE INSTRUCTIONS: Special Diet: 1800 lin, carbohydrate controlled FOLLOW UP/APPOINTMENTS Appointments 1. Follow up with your primary care provider in one week 2. Follow up with Dr. Wade in one week DARYL BAEZ Oct 17, 2016 10:01
[2016-10-17] MEDS ORDERED: LOSA50TA6 PO ×2 (12:34→13:19)
[2016-10-17] MEDS ORDERED: SENNA TAB PO SCH (13:30)
[2016-10-17] MEDS ORDERED: MAGNESIUM HYDROXIDE 30ML CUP PO PRN (13:30)
--- NOTE | 2016-10-17 16:16 | CONS ---
Date/Time of Note Date/Time of Note DATE: 10/17/16 TIME: 16:13 Consult Date/Type/Reason Admit Date/Time Oct 15, 2016 at 19:21 Initial Consult Date 10/16/16 Type of Consultation: Neurology Reason for Consultation right sided numbness Ordering Provider: DARYL BAEZ Subjective symptoms resolving still some residual right sided numbness denies headache Objective Vital Signs Date Time Temp Pulse Resp B/P Pulse Ox O2 Delivery O2 Flow Rate FiO2 10/17/16 15:08 97.9 78 18 149/84 99 10/16/16 02:02 Room Air Intake and Output 10/16/16 10/16/16 10/17/16 15:00 23:00 07:00 Intake Total 400 ml Balance 400 ml Exam Constitutional: alert, oriented, well developed Head: atraumatic, normocephalic Eyes: EOMI Neurological: RN LIAISON II-XII intact, DTR's symmetric, nl mental status, nl speech, nl strength (mild right pronator drift and right FTN ataxia, gait is stable no ataxia) appears functional Results/Medications Result Diagram: 10/17/1662110/17/16621 Results 24 hrs Laboratory Tests Test 10/16/16 20:44 10/17/16 03:03 10/17/16 06:22 10/17/16 08:16 Bedside Glucose 279 H 243 H 208 White Blood Count 7.0 Red Blood Count 4.39 Hemoglobin 13.0 Hematocrit 38.0 Mean Corpuscular Volume 86.6 Mean Corpuscular Hemoglobin 29.6 Mean Corpuscular Hemoglobin Concent 34.2 Red Cell Distribution Width 14.3 Platelet Count 186 Mean Platelet Volume 11.3 H Neutrophils % 78.2 H Lymphocytes % 11.5 L Monocytes % 8.8 Eosinophils % 0.3 Basophils % 0.3 Nucleated Red Blood Cells % 0.0 Neutrophils # 5.4 Lymphocytes # 0.8 Monocytes # 0.6 Eosinophils # 0.0 Basophils # 0.0 Nucleated Red Blood Cells # 0.0 Sodium Level 135 Potassium Level 3.8 Chloride Level 103 Carbon Dioxide Level 27 Anion Gap 9 Blood Urea Nitrogen 26 H Creatinine 0.39 L Glucose Level 259 H Calcium Level 8.7 Test 10/17/16 11:49 Bedside Glucose 239 H Medications Current Medications Aspirin (Halfprin) 81 mg DAILY PO Last administered on 10/17/16t 08:41; Admin Dose 81 MG; Start 10/16/16 at 09:00 Atenolol (Tenormin) 50 mg DAILY PO Last administered on 10/16/16 09:22; Admin Dose 50 MG; Start 10/16/16 at 09:00 Lisinopril (Zestril) 40 mg DAILY PO Last administered on 10/17/16 08:41; Admin Dose 40 MG; Start 10/16/16 at 09:00 Atorvastatin Calcium (Lipitor) 40 mg HS PO Last administered on 10/16/16 20:41 ; Admin Dose 40 MG; Start 10/16/16 at 21:00 Heparin Sodium (Porcine) (Heparin (5000 Units/0.5 ml)) 5,000 unit BID SC Last administered on 10/17/16 08:51; Admin Dose 5,000 UNIT; Start 10/16/16 at 09:00 Diagnostic Test (Pha) (Accu-Chek) 1 ea 02 XX ; Start 10/17/16 at 02:00 Miscellaneous Information 1 ea NOTE XX ; Start 10/16/16 at 03:30 Glucose (Glutose) 15 gm Q15M PRN PO DECREASED GLUCOSE; Start 10/16/16 at 03:30 Glucose (Glutose) 22.5 gm Q15M PRN PO DECREASED GLUCOSE; Start 10/16/16 at 03: 30 Dextrose (D50w Syringe) 25 ml Q15M PRN IV DECREASED GLUCOSE; Start 10/16/16 at 03:30 Dextrose (D50w Syringe) 50 ml Q15M PRN IV DECREASED GLUCOSE; Start 10/16/16 at 03:30 Glucagon (Glucagen) 1 mg Q15M PRN IM DECREASED GLUCOSE; Start 10/16/16 at 03:30 Glucose (Glutose) 15 gm Q15M PRN BUCCAL DECREASED GLUCOSE; Start 10/16/16 at 03 :30 Insulin Glargine (Lantus) 15 unit DAILY@09 SC Last administered on 10/17/16 08 :52; Admin Dose 15 UNIT; Start 10/17/16 at 09:00 Senna (Senokot) 2 tab BID PO Last administered on 10/17/16 14:21; Admin Dose 2 TAB; Start 10/17/16 at 13:30 Magnesium Hydroxide (Milk Of Mag) 30 ml BID PRN PO CONSTIPATION; Start at 13:30 Assessment/Plan Chief Complaint/Hosp Course 41 year old female with history of HTN, HLD, DM p/w right sided numbness/ weakness, exam consistent with mild right pronator drift and ataxia with decreased sensation. MRI Brain shows no areas of acute infarction non specific minimal white matter changes, MRA Head/Neck wnl. Recommendations: -ASA 81 mg daily -Lipitor 40 mg qhs -ECHO wnl -HBA1C is 10.7% target less than 6.5%, advised dietary modification, weight loss diabetes education required -maintain normotension BP<140/90 -outpatient neurology follow up advised Problems: ROBBIE MARTINEZ MD Oct 17, 2016 16:16
== END 2016-10-17 18:40 | disposition home or self-care (01) | DRG 93 ==
LOC: E/R 15:42 → TEL 19:21
PROVIDERS: ADMIT Internal Medicine; ATTEND Internal Medicine
DX: R20.0 Anesthesia of skin (principal); I10 Essential (primary) hypertension; R53.1 Weakness; R10.11 Right upper quadrant pain; E11.9 Type 2 diabetes mellitus without complications; E78.5 Hyperlipidemia, unspecified
CPT/HCPCS: 36415; 70450; 70544; 70549; 70551; 71010; 76705; 80048; 80053; 80061; 81003; 82962; 83036; 83690; 83735; 84100; 84443; 84484; 85025; 93005; 93306; 96360; 97110; 97116; 97162; J1644; J1815; J7030

== ENCOUNTER 2017-03-24 18:21 | Emergency (ER) | payer SELFPAY ==
[~2017-03-24] VITALS: Ht 160 cm; Wt 63.0 kg
[~2017-03-24 18:21] MED LIST changes: +ASPI-664 PO; -CIPR500T4 PO; -FAMO-18 PO; -HYD25 PO; -HYDR-3672 PO; -HYDR-762 PO; -IBUP800T25 PO; +LANT3I SC; -LISI20TA11 PO; +LOSA50TA6 PO; -MAG355OR15 PO; -METF-480 PO; -METH-70 PO; +NOVO3I SC; -OMEP20CA16 PO; -ONDA4TAB8 PO
[2017-03-24 18:28] VITALS: Ht 160 cm; Wt 63.0 kg
== END 2017-03-25 10:14 | disposition left against medical advice (07) ==
LOC: E/R 18:21
DX: Z53.21 Procedure and treatment not carried out due to patient leaving prior to being seen by health care provider (principal)
CPT/HCPCS: 93005